=== PATIENT | female | born 1960 | race Caucasian/White ===

== ENCOUNTER 2023-09-14 16:45 | Emergency (ER) | payer SELFPAY ==
[~2023-09-14] VITALS: Ht 157.5 cm; Wt 76.7 kg
[2023-09-14 17:00] VITALS: BP 169/98; PULSE 101; RESP 20; TEMP 98.2; O2SAT 99
[2023-09-14 17:14] VITALS: O2SAT 99
[2023-09-14] MEDS: methocarbamoL 500 MG TAB PO STA (17:30)
[2023-09-14] MEDS: ACETAMINOPHEN 325 MG TAB PO ONE (17:31)
[2023-09-14 18:35] LABS: BASOPHILS % (AUTO) 0.5 % (0.0-2.0); EOSINOPHILS % (AUTO) 0.3 % (0.0-4.0); HEMATOCRIT 43.3 % (36-48); LYMPHOCYTES # (AUTO) 2.2 K/uL (2.5-16.5); MEAN CORPUSCULAR HEMOGLOBIN 31 pg (27-31); MEAN CORPUSCULAR HGB CONC 35 g/dL (33-37); MEAN CORPUSCULAR VOLUME 90.1 fL (80-94); MONOCYTES # (AUTO) 0.5 K/uL (0.8-1.0); MONOCYTES % (AUTO) 6.9 % (1.7-9.3); NEUTROPHILS % (AUTO) 64.3 % (42.2-75.2); PLATELET COUNT (AUTO) 247 K/uL (140-450); WHITE BLOOD COUNT (AUTO) 7.7 K/uL (4.8-10.8)
[2023-09-14 18:45] LABS: ANION GAP 12.5 (8-16); CALCIUM 8.2 mg/dL (8.5-10.1); CARBON DIOXIDE 28.3 mmol/L (21-32); POTASSIUM 3.8 mmol/L (3.5-5.1)
[2023-09-14 18:51] LABS: ALANINE AMINOTRANSFERASE 18 U/L (12-78); ALBUMIN 2.9 g/dL (3.4-5.0); ALKALINE PHOSPHATASE 115 U/L (50-136); ASPARTATE AMINOTRANSFERASE 9 U/L (15-37); BILIRUBIN,DIRECT 0.1 mg/dL (0.0-0.3); TOTAL BILIRUBIN 0.4 mg/dL (0.0-1.0); TOTAL PROTEIN, SERUM 8.3 g/dL (6.4-8.2)
[2023-09-14] MEDS ORDERED: NAPR-54 PO (19:28)
[2023-09-14] MEDS ORDERED: LID5T TP (19:28)
[2023-09-14] MEDS: LIDOCAINE 5% 1 EA PATCH TP ONE (19:29)
[2023-09-14 19:33] VITALS: BP 154/93; PULSE 93; RESP 17; TEMP 97.9; O2SAT 97
== END 2023-09-14 19:33 | disposition home or self-care (01) ==
LOC: MED 16:45
DX: S29.9XXA Unspecified injury of thorax, initial encounter (principal); S09.90XA Unspecified injury of head, initial encounter; S49.92XA Unspecified injury of left shoulder and upper arm, initial encounter; E11.9 Type 2 diabetes mellitus without complications; I10 Essential (primary) hypertension; E78.5 Hyperlipidemia, unspecified; Z79.899 Other long term (current) drug therapy; W22.8XXA Striking against or struck by other objects, initial encounter; Y92.89 Other specified places as the place of occurrence of the external cause; Y93.89 Activity, other specified; Y99.8 Other external cause status
CPT/HCPCS: 36415; 70450; 71045; 73030; 80048; 80076; 84484; 85025; 93005; 99285